=== PATIENT | female | born 1995 | race Caucasian/White ===

== ENCOUNTER 2016-11-16 08:05 | Emergency (ER) | payer OTHER ==
[~2016-11-16] VITALS: Ht 162.6 cm; Wt 65.0 kg
[2016-11-16 08:07] VITALS: TEMP 36.8; Ht 162.6 cm; Wt 65.0 kg
--- NOTE | 2016-11-16 08:54 | DIAGNOSTIC IMAGING REPORT ---
LEFT FOOT MIN 3 VIEWS ROUTINE CLINICAL HISTORY: Left foot pain. COMPARISON: None. DISCUSSION: No fractures or dislocations are visualized. There is no evidence of pathologic periostitis IMPRESSION: Normal left foot Electronically signed by: Jake Cruz M.D. 11/16/2016 8:52 AM Dictated Date/Time: 11/16/2016 8:51 AM
[2016-11-16] MEDS ORDERED: BCPILLS PO (09:13)
--- NOTE | 2016-11-16 09:25 | EMERGENCY ROOM VISIT NOTE ---
ED Visit Note First contact with patient: 08:10 CHIEF COMPLAINT: Left foot pain 2 days HISTORY OF PRESENT INJURY: Patient is a healthy 21-year-old white female who presents emergency department for evaluation of left foot pain. She states that she did a lot of walking 2 days ago, was wearing sneakers with insoles, which she typically wears. Afterwards, she noted that both of her feet felt sore, she thought it was related to follow the walking. The pain in her right foot went away, but the pain in her left foot did not. She states the pain is primarily in the ball of the left foot, and radiates towards the arch. She states it hurts primarily with weightbearing. She applied ice. She did not take any medication for pain. She has a history of plantar fasciitis and states that this does not feel similar. There was no fall, twisting injury or direct trauma to the foot or ankle. REVIEW OF SYSTEMS: Review of systems as per HPI. All other systems reviewed were negative. At least 6 systems reviewed. PMH: Electronic medical records are reviewed and summarized as above/below. See Problem List. SOCIAL HISTORY: College student. Nonsmoker. PHYSICAL EXAM: Vital Signs: Reviewed Nurse's notes. GENERAL: Alert, oriented and coherent, not in acute distress. Ankle/Foot: Left ankle is nontender to palpation, no joint effusion is appreciated. Examination of the left foot does not know any significant swelling. No pitting edema. She has pain on the plantar aspect of the foot, along the first metatarsal and over the first MTP joint. Range of motion limited secondary to pain. No deformity. The skin is intact. EMERGENCY DEPARTMENT COURSE: Left foot x-rays were obtained and were negative for acute fracture or bony abnormality. Differential diagnoses entertained included sprain, fracture, stress fracture, metatarsalgia, neuroma, among others. The patient was agreeable to a walking shoe. She was encouraged to apply ice and to use an anti-inflammatory medicine. She can follow-up with orthopedics or [facility] if her symptoms are not improving. LEFT FOOT MIN 3 VIEWS ROUTINE CLINICAL HISTORY: Left foot pain. COMPARISON: None. DISCUSSION: No fractures or dislocations are visualized. There is no evidence of pathologic periostitis IMPRESSION: Normal left foot Medication reconciliation: I attest that I have personally reviewed the patient' s current medication list. Current/Historical Medications Scheduled Control Pills ( Control Pills), 1 TAB PO DAILY Allergies Coded Allergies: No Known Allergies (Unverified , 11/16/16) Vital Signs Date Time Temp Pulse Resp B/P (MAP) Pulse Ox O2 Delivery O2 Flow Rate FiO2 11/16/16 09:43 75 15 115/76 98 11/16/16 08:07 36.8 99 18 124/82 99 Room Air Departure Information Impression Primary Impression: Left foot pain Referrals [facility] (PCP) Patient Instructions My [facility] Additional Instructions Ibuprofen(Motrin, Advil) may be used for fever or pain. Use 600mg every six hours as needed. Take with food. Avoid using more than 2400mg in a 24 hour period. Do not use 2400mg per day for more than three consecutive days without physician direction. Prolonged inappropriate use can lead to stomach upset or ulcers. This medication can be taken if you need to drive, work, or perform activities which may be dangerous when taking narcotic pain medication. (AND/OR) Acetaminophen(Tylenol) may be used for fever or pain. Use 1000mg every six hours as needed. Avoid using more than 3000mg in a 24 hour period. This medication can be taken if you need to drive, work, or perform activities which may be dangerous when taking narcotic pain medication. Ice compresses for 20 minutes at a time four times daily for 2-3 days. Rest and elevate your injury. Use the post operative shoe or wear a supportive sneaker for comfort. Continue current medications. Return to the ER immediately for any numbness, tingling, severe pain, extreme swelling in the extremity or as needed. Followup with your family doctor or orthopedic surgery if no improvement in 5-7 days.
[2016-11-16 09:43] VITALS: BP 115/76; PULSE 75; O2SAT 98
== END 2016-11-16 09:43 | disposition home or self-care (01) ==
LOC: C.EDB 08:07 → C.EDA 09:43
DX: M79.672 Pain in left foot (principal); Z79.3 Long term (current) use of hormonal contraceptives

== ENCOUNTER → 2017-02-01 | Outpatient (CLI) | payer OTHER ==
[~2017-02-01] MED LIST: BCPILLS PO
[2017-02-04 07:28] LABS: CHLAMYDIA TRACH RNA*** NOT DETECTED (NOT DETECTED); GC (NEIS GONORRHOEAE)RNA** NOT DETECTED (NOT DETECTED)
== END | disposition home or self-care (01) ==
LOC: C.LABSPEC 16:59
PROVIDERS: ATTEND Physician Assistant
DX: Z01.419 Encounter for gynecological examination (general) (routine) without abnormal findings (principal)

== ENCOUNTER → 2017-02-01 | Outpatient (CLI) | payer OTHER | END | disposition home or self-care (01) | LOC: C.PAPS 10:15 | PROVIDERS: ATTEND Physician Assistant | DX: Z12.4 Encounter for screening for malignant neoplasm of cervix (principal) ==